=== PATIENT | male | born 1990 | race Caucasian/White ===

== ENCOUNTER 2020-04-09 09:23 | Emergency (ER) | payer OTHER ==
[~2020-04-09] VITALS: Ht 167.6 cm; Wt 83.9 kg
== END 2020-04-09 09:45 | disposition home or self-care (01) ==
LOC: ER 09:43
DX: L30.9 Dermatitis, unspecified (principal); F41.9 Anxiety disorder, unspecified; F32.9 Major depressive disorder, single episode, unspecified
CPT/HCPCS: 99282

== ENCOUNTER 2022-02-01 15:36 | Emergency (ER) | payer OTHER ==
[~2022-02-01] VITALS: Ht 167.6 cm; Wt 83.9 kg
[2022-02-01] MEDS ORDERED: BACTRIM DS TAB1 EACH PO (16:16)
[2022-02-01] MEDS ORDERED: PREDNISONE20 MG PO (16:16)
[2022-02-01] MEDS ORDERED: PREDNISONE 20 MG TAB ONE (16:22)
[2022-02-01] MEDS ORDERED: PREDNISONE 20 MG TAB PO ONE (16:30)
== END 2022-02-01 16:20 | disposition home or self-care (01) ==
LOC: ER 15:41
DX: N48.22 Cellulitis of corpus cavernosum and penis (principal); S30.862A Insect bite (nonvenomous) of penis, initial encounter; F41.9 Anxiety disorder, unspecified; F32.A Depression, unspecified
CPT/HCPCS: 99282; J7512

== ENCOUNTER 2023-11-21 18:43 | Emergency (ER) | payer OTHER ==
[~2023-11-21] VITALS: Ht 172.7 cm; Wt 93.0 kg
[~2023-11-21 18:43] MED LIST: BACTRIM DS TAB1 EACH PO; CLONAZEPAM1 MG PO; HYDROCODON-ACE1 EA11 PO; HYDROXYZINE HCL50 MG; PREDNISONE20 MG PO; ROPINIROLE HCL1 MG PO; SUBOXONE 4 MG-1 EACH; ZOLOFT100 MG PO
[2023-11-21 19:25] VITALS: PULSE 57; RESP 16; TEMP 97.9; O2SAT 98
[2023-11-21] MEDS ORDERED: CEPHALEXIN MONOHYDRATE 250 MG CAP ONE (20:11)
[2023-11-21] MEDS: CEPHALEXIN MONOHYDRATE 250 MG CAP PO ONE (20:22)
[2023-11-21] MEDS: IBUPROFEN 600 MG TAB PO STA (20:25)
[2023-11-21] MEDS ORDERED: CEPHALEXIN500 MG PO (20:32)
== END 2023-11-21 20:47 | disposition home or self-care (01) ==
LOC: FSED 18:51
DX: M79.674 Pain in right toe(s) (principal); L60.0 Ingrowing nail; F41.9 Anxiety disorder, unspecified; G25.81 Restless legs syndrome
CPT/HCPCS: 99283